=== PATIENT | male | born 1995 | race Caucasian/White ===

== ENCOUNTER 2020-06-02 15:23 | Emergency (ER) | payer SELFPAY ==
[2020-06-02] MEDS ORDERED: Fluorescein 1 MG Ophth Strip EYELF ONE (17:12)
[2020-06-02] MEDS ORDERED: Tetracaine HCl/PF 0.5% 4 ML Bottle EYEBOTH ONE (17:12)
[2020-06-02] MEDS ORDERED: Acetaminophen/HYDROcodone 325-5 MG Tab PO ONE (17:30)
[2020-06-02] MEDS ORDERED: Ciprofloxacin 0.3% Ophth Soln 5 ML Bottle EYERT ONE (17:31)
[2020-06-02] MEDS ORDERED: Penicillin V Potassium 250 MG Tab PO STA (17:32)
--- NOTE | 2020-06-02 17:37 | EDM.PDOC ---
ED HPI GENERAL MEDICAL PROBLEM - General Chief Complaint: ENT Problem Stated Complaint: RIGHT EYE, TEETH ARE SWELLING RIGHT SIDE Time Seen by Provider: 06/02/20 17:05 Source of Information: Reports: Patient History Limitations: Reports: No Limitations - History of Present Illness INITIAL COMMENTS - FREE TEXT/NARRATIVE: Patient comes emergency department today with complaints of an injury to his right eye as well as some right upper dental pain. Yesterday the patient was working with his grandfather in the barn when he was doing some grinding with a metal wheel and the suddenly felt something fly into his right eye. He has some blurriness of his vision to his right eye but no change in his visual acuity. He has no other pain to his eye. He has no headache. His last tetanus shot was about 1 year ago. He also complains of right upper dental pain. This patient well aware that he is a very poor dentition. He has an appointment with his dentist tomorrow. NO COVID exposure no COVID symptoms. Right Eye Pain Score (Numeric/FACES): 8 - Related Data Allergies Allergy/AdvReac Type Severity Reaction Status Date / Time No Known Allergies Allergy Verified 06/02/20 15:40 Home Meds: Home Meds . [No Known Home Meds] 06/02/20 [History] Past Medical History - Past Health History Medical/Surgical History: Denies Medical/Surgical History HEENT History: Reports: None Cardiovascular History: Reports: None Respiratory History: Reports: None Gastrointestinal History: Reports: None Genitourinary History: Reports: None Musculoskeletal History: Reports: None Neurological History: Reports: None Psychiatric History: Reports: None Endocrine/Metabolic History: Reports: None Hematologic History: Reports: None Immunologic History: Reports: None Oncologic (Cancer) History: Reports: None Dermatologic History: Reports: None - Infectious Disease History Infectious Disease History: Reports: None - Past Surgical History Head Surgeries/Procedures: Reports: None Social & Family History - Family History Family Medical History: Noncontributory - Tobacco Use Smoking Status *Q: Current Every Day Smoker Years of Tobacco use: 14 Packs/Tins Daily: 0.5 - Caffeine Use Caffeine Use: Reports: Soda - Recreational Drug Use Recreational Drug Use: No ED ROS ENT - Review of Systems Review Of Systems: Comprehensive ROS is negative, except as noted in HPI. ED EXAM, ENT - Physical Exam Exam: See Below Exam Limited By: No Limitations General Appearance: Alert, WD/WN, No Apparent Distress Eye Exam: Right Eye: Corneal Abrasion (Under fluroseen he has a moderate sized right mid to lateral superficial corneal abrasion. No foreign material. ), Left Eye: Normal Inspection, Bilateral Eye: PERRL Ears: Normal External Exam Nose: Normal Inspection Mouth/Throat: No: Normal Teeth (Patient has very few teeth at most. Most of them have the majority of the dentin missing and the pulp is pretty much what is left. In the area of the right upper jaw in the tooth number #3.no erythema injection swelling abscess. ), Gum Swelling Head: Atraumatic, Normocephalic Neck: Normal Inspection Respiratory/Chest: No Respiratory Distress Cardiovascular: Normal Peripheral Pulses Course - Vital Signs Last Recorded V/S: Last Vital Signs Temp 98.6 F 06/02/20 15:40 Pulse 86 06/02/20 15:40 Resp 16 06/02/20 15:40 BP 120/64 06/02/20 15:40 Pulse Ox 100 06/02/20 15:40 - Orders/Labs/Meds Meds: Medications Discontinued Medications Generic Name Dose Route Start Last Admin Trade Name Vignesh PRN Reason Stop Dose Admin Hydrocodone Bitart/Acetaminophen 1 tab 06/02/20 17:30 06/02/20 17:49 [place] 325-5 Mg PO 06/02/20 17:31 1 tab ONETIME ONE Administration Ciprofloxacin 1 ml 06/02/20 17:31 06/02/20 17:49 [place] 0.3% Ophth Soln EYERT 06/02/20 17:32 2 drop ONETIME ONE Administration Fluorescein Sodium 1 mg 06/02/20 17:12 06/02/20 17:49 Ful-Bertha EYELF 06/02/20 17:13 1 mg ONETIME ONE Administration Penicillin V Potassium 250 mg 06/02/20 17:32 06/02/20 17:49 Veetids PO 06/02/20 17:33 250 mg NOW STA Administration Tetracaine HCl 1 ml 06/02/20 17:12 06/02/20 17:49 Tetracaine 0.5% Steri-Unit Rebeca EYEBOTH 06/02/20 17:13 2 drop ASDIRECTED ONE Administration - Re-Assessments/Exams Free Text/Narrative Re-Assessment/Exam: 06/03/20 09:10 The eye was cleansed with sterile saline multiple times. There is no foreign material on top of the cornea. There is no embedded material in the cornea either. With fluorescein staining there is a moderately sized corneal abrasion that starts at the 12 o'clock position and extends laterally. There is no flap. The rest of the eye exam is unremarkable. I did offer a dental block for the relief of this patient's pain but he refused it. Cipro drops to the right eye. Pen-Vee K for the dental pain. The natural course of both of these illness was with the patient. He is comfortable with this plan his questions were answered. Departure - Departure Time of Disposition: 17:29 Disposition: Home, Self-Care 01 Clinical Impression: Pain, dental Corneal abrasion Qualifiers: Encounter type: initial encounter Laterality: right Qualified Code(s): S05.01XA - Injury of conjunctiva and corneal abrasion without foreign body, right eye, initial encounter - Discharge Information Instructions: Corneal Abrasion, [id number], Acute Pain, Adult Forms: ED Department Discharge Additional Instructions: Tylenol and or Ibuprofen as needed for pain. Pen VK 1 tablet 4 times a day for the next 5 days. First dose given in the ED and RX given to the patient. See your dentist JESUSITA. Cipro Eye drops 2 drops to the right eye every 4 hrs for the next 5 days. You should be 90% better in the eye in 24 hrs and 100% better in 48 hrs. If not following this you must be seen at optometry. Return to the ED if new or worsening. Follow up with PCP if any concerns. Sepsis Event Note (ED) - Evaluation Sepsis Screening Result: No Definite Risk
== END 2020-06-02 17:50 | disposition home or self-care (01) ==
LOC: DL.ED 15:23
DX: S05.01XA Injury of conjunctiva and corneal abrasion without foreign body, right eye, initial encounter (principal); K08.89 Other specified disorders of teeth and supporting structures; F17.210 Nicotine dependence, cigarettes, uncomplicated; W22.8XXA Striking against or struck by other objects, initial encounter; Y99.0 Civilian activity done for income or pay
CPT/HCPCS: 99283; A9270